=== PATIENT | male | born 1935 | race Caucasian/White ===

== ENCOUNTER 2021-02-25 10:04 | Observation (INO) | payer MEDICARE, OTHER ==
[~2021-02-25] VITALS: Ht 170.2 cm; Wt 71.0 kg
[2021-02-26 08:55] VITALS: BP 117/63
== END 2021-02-26 10:35 | disposition home or self-care (01) ==
LOC: CACL 10:04 → ORIP 15:32 → 5SO 15:55
PROVIDERS: ADMIT Internal Medicine Cardiovascular Disease; ATTEND Internal Medicine Cardiovascular Disease
DX: I20.0 Unstable angina (principal); I45.2 Bifascicular block; I10 Essential (primary) hypertension; E11.9 Type 2 diabetes mellitus without complications; M19.90 Unspecified osteoarthritis, unspecified site; E78.5 Hyperlipidemia, unspecified; M19.011 Primary osteoarthritis, right shoulder; G47.00 Insomnia, unspecified; F17.200 Nicotine dependence, unspecified, uncomplicated; Z79.899 Other long term (current) drug therapy